=== PATIENT | male | born 1975 | race Caucasian/White ===

== ENCOUNTER 2023-10-09 09:18 | Observation (INO) | payer MEDICARE, OTHER ==
[~2023-10-09] VITALS: Ht 185.4 cm; Wt 77.1 kg
[2023-10-09 09:28] VITALS: BP 127/79; PULSE 91; RESP 18; TEMP 98; O2SAT 95
[2023-10-09 10:26] LABS: BASOPHILS # (AUTO) 0.1 K/uL (0.00-0.22); BASOPHILS % (AUTO) 1.1 % (0.0-2.0); EOSINOPHILS # (AUTO) 0.1 K/uL (0-0.4); EOSINOPHILS % (AUTO) 1.2 % (0.0-4.0); HEMOGLOBIN 12.7 g/dL (12.0-18.0); LYMPHOCYTES # (AUTO) 1.1 K/uL (2.0-11.5); LYMPHOCYTES % (AUTO) 17.7 % (20.5-51.1); MEAN CORPUSCULAR HEMOGLOBIN 30 pg (27-31); MEAN CORPUSCULAR HGB CONC 34 g/dL (33-37); MEAN CORPUSCULAR VOLUME 89.9 fL (80-94); MONOCYTES # (AUTO) 0.5 K/uL (0.8-1.0); MONOCYTES % (AUTO) 8.4 % (1.7-9.3); NEUTROPHILS # (AUTO) 4.6 K/uL (1.8-7.7); NEUTROPHILS % (AUTO) 71.6 % (42.2-75.2); PLATELET COUNT (AUTO) 231 K/uL (140-450); RED BLOOD CELL COUNT(AUTO) 4.23 MIL/uL (4.20-6.10); RED CELL DISTRIBUTION WIDTH 13.3 % (11.6-13.7); WHITE BLOOD COUNT (AUTO) 6.4 K/uL (4.8-10.8)
[2023-10-09 10:40] LABS: INR 0.97 (0.8-1.2); PARTIAL THROMBOPLASTIN TIME 27.1 secs (22-35.6); PROTHROMBIN TIME 10.2 secs (10.8-13.4)
[2023-10-09 10:41] LABS: ANION GAP 12.2 (8-16); CALCIUM 8.8 mg/dL (8.5-10.1); CARBON DIOXIDE 28.3 mmol/L (21-32); CREATININE 1.2 mg/dL (0.6-1.3); POTASSIUM 3.5 mmol/L (3.5-5.1)
[2023-10-09 10:50] LABS: ALANINE AMINOTRANSFERASE 60 U/L (12-78); ALBUMIN 3.9 g/dL (3.4-5.0); ALCOHOL, BLOOD < 3 mg/dL (<10); ALKALINE PHOSPHATASE 154 U/L (50-136); ASPARTATE AMINOTRANSFERASE 73 U/L (15-37); BILIRUBIN,DIRECT 0.1 mg/dL (0.0-0.3); CREATINE KINASE, TOTAL 327 U/L (39-308); LIPASE 58 U/L (16-77); TOTAL BILIRUBIN 0.5 mg/dL (0.0-1.0); TOTAL PROTEIN, SERUM 7.5 g/dL (6.4-8.2)
[2023-10-09 10:51] LABS: ACETAMINOPHEN < 0.5 ug/ml (10-30); SALICYLATE < 2.8 mg/dL (2.8-20.0)
[2023-10-09 10:53] LABS: LACTIC ACID 1.2 mmol/L (0.4-2.0)
[2023-10-09 11:20] LABS: CKMB RELATIVE INDEX 2.2 (0.0-2.5); CREATINE KINASE MB 7.3 ng/mL (0-3.6)
[2023-10-09] MEDS: NACL 0.9% 1,000 ML IV ONE (11:52)
[2023-10-09] MEDS ORDERED: TADA5TAB PO (12:57)
[2023-10-09] MEDS ORDERED: HUM SUBQ (12:57)
[2023-10-09] MEDS ORDERED: FAMO-368 PO (12:57)
[2023-10-09] MEDS ORDERED: ESCI20TA PO (12:57)
[2023-10-09] MEDS ORDERED: HYDROcodone/APAP 5/325 MG 1 TAB TAB PO PRN (14:50)
[2023-10-09] MEDS ORDERED: KCL 20 MEQ IN 100 mL PREMIX 200 ML IV PRN (14:50)
[2023-10-09] MEDS ORDERED: MAG SULF 2000 MG/WATER PREMIX 50 ML IV PRN (14:50)
[2023-10-09] MEDS ORDERED: DEXTROSE 50% 50 ML SYR IVP PRN (14:50)
[2023-10-09] MEDS ORDERED: LORazepam 1 MG TAB PO PRN (14:50)
[2023-10-09] MEDS ORDERED: MAGNESIUM OXIDE 400 MG TAB PO PRN (14:50)
[2023-10-09] MEDS ORDERED: ZOLPIDEM 5 MG TAB PO PRN (14:50)
[2023-10-09] MEDS ORDERED: POTASSIUM CHLORIDE 10 MEQ TABER PO PRN (14:50)
[2023-10-09] MEDS ORDERED: ONDANSETRON 4 MG/2 ML VIAL IVP PRN (14:50)
[2023-10-09] MEDS ORDERED: ACETAMINOPHEN 325 MG TAB PO PRN (14:50)
[2023-10-09] MEDS: BLOOD GLUCOSE MONITORING 1 DEV DEV FS SCH (16:35)
[2023-10-09] MEDS: INSULIN LISPRO SLIDING SCALE 100 UNITS/ML VIAL SUBQ PRN (16:42)
[2023-10-09 20:36] VITALS: BP 131/76; PULSE 90; RESP 14; TEMP 97.1; O2SAT 100
[2023-10-10] MEDS ORDERED: ESCITALOPRAM 20 MG TAB PO SCH (09:00)
[2023-10-10] MEDS ORDERED: DOCUSATE SODIUM 100 MG GELCAP PO SCH (09:00)
[2023-10-10] MEDS ORDERED: ENOXAPARIN 40 MG/0.4 ML SYR SUBQ SCH (09:00)
== END 2023-10-09 20:36 | disposition home or self-care (01) ==
LOC: EDBD 09:18 → MED 09:18 → MTU 14:53 → INTOOBSV 14:53 → UNDOADMOB 14:53 → MTU 18:31 → UNDODISOB 20:36
PROVIDERS: ADMIT Hospitalist; ATTEND Hospitalist
DX: E11.649 Type 2 diabetes mellitus with hypoglycemia without coma (principal); R41.82 Altered mental status, unspecified; M79.7 Fibromyalgia; F32.A Depression, unspecified; F12.90 Cannabis use, unspecified, uncomplicated; Z79.4 Long term (current) use of insulin; Z79.899 Other long term (current) drug therapy; Z90.49 Acquired absence of other specified parts of digestive tract; Z86.2 Personal history of diseases of the blood and blood-forming organs and certain disorders involving the immune mechanism
CPT/HCPCS: 36415; 70450; 71045; 80048; 80076; 82550; 82553; 82948; 83036; 83605; 83690; 84484; 85025; 85610; 85730; 87040; 93005; 96360; 96372; 99285; G0378; G0480; J1815; G0482

== ENCOUNTER 2023-12-02 21:23 | Emergency (ER) | payer MEDICARE, OTHER ==
[~2023-12-02] VITALS: Ht 182.9 cm; Wt 81.6 kg
[2023-12-02 21:23] VITALS: BP 154/88; PULSE 86; RESP 19; TEMP 96.7; O2SAT 97
[~2023-12-02 21:23] MED LIST: ESCI20TA PO; FAMO-368 PO; HUM SUBQ; TADA5TAB PO
[2023-12-02 21:56] VITALS: BP 118/65; PULSE 97; RESP 20; TEMP 96.7; O2SAT 98
[2023-12-02 22:03] LABS: BASOPHILS % (AUTO) 0.4 % (0.0-2.0); EOSINOPHILS % (AUTO) 0.2 % (0.0-4.0); HEMOGLOBIN 11.8 g/dL (12.0-18.0); LYMPHOCYTES # (AUTO) 0.9 K/uL (2.0-11.5); MEAN CORPUSCULAR HEMOGLOBIN 30 pg (27-31); MEAN CORPUSCULAR HGB CONC 34 g/dL (33-37); MEAN CORPUSCULAR VOLUME 89.3 fL (80-94); MONOCYTES # (AUTO) 0.7 K/uL (0.8-1.0); MONOCYTES % (AUTO) 6.4 % (1.7-9.3); NEUTROPHILS # (AUTO) 9.4 K/uL (1.8-7.7); PLATELET COUNT (AUTO) 244 K/uL (140-450); RED BLOOD CELL COUNT(AUTO) 3.92 MIL/uL (4.20-6.10); RED CELL DISTRIBUTION WIDTH 13.5 % (11.6-13.7); WHITE BLOOD COUNT (AUTO) 11.1 K/uL (4.8-10.8)
[2023-12-02 22:17] LABS: ANION GAP 12.8 (8-16); CALCIUM 9.2 mg/dL (8.5-10.1); CARBON DIOXIDE 29.2 mmol/L (21-32); CREATININE 1.2 mg/dL (0.6-1.3)
[2023-12-02 22:23] LABS: ALBUMIN 3.6 g/dL (3.4-5.0); BILIRUBIN,DIRECT 0.1 mg/dL (0.0-0.3); TOTAL BILIRUBIN 0.5 mg/dL (0.0-1.0); TOTAL PROTEIN, SERUM 7.3 g/dL (6.4-8.2)
[2023-12-02] MEDS: POTASSIUM CHLORIDE 10 MEQ TABER PO ONE (22:59)
[2023-12-02] MEDS: LACTATED RINGERS 1,000 ML IV ONE (23:04)
[2023-12-03] MEDS: LACTATED RINGERS 1,000 ML IV ONE (00:59)
[2023-12-03 03:13] LABS: APPEARANCE,URINE CLEAR (CLEAR); BILIRUBIN,URINE NEGATIVE (NEGATIVE); BLOOD, URINE NEGATIVE (NEGATIVE); COLOR,URINE YELLOW (YELLOW); LEUKOCYTE ESTERASE ,URINE NEGATIVE (NEGATIVE); NITRITE, URINE NEGATIVE (NEGATIVE); PH,URINE 6.5 (5.0-9.0); PROTEIN,URINE NEGATIVE (NEGATIVE); UGLUCOSE TRACE (NEGATIVE); UROBILINOGEN,URINE 0.2 EU/dL (0.2 - 1)
[2023-12-03 03:30] LABS: AMPHETAMINE, URINE POSITIVE ng/ml (NEG <=1000); BARBITURATE, URINE NEGATIVE ng/ml (NEG <=200); BENZODIAZEPINE, URINE NEGATIVE ng/mL (NEG <=200); CANNABINOID, URINE POSITIVE ng/mL (NEG <=50); COCAINE, URINE NEGATIVE ng/mL (NEG <=300); OPIATE, URINE NEGATIVE ng/mL (NEG <=2000); PHENCYCLIDINE SCREEN,URINE NEGATIVE ng/mL (NEG <=25)
== END 2023-12-03 03:59 | disposition home or self-care (01) ==
LOC: MED 21:23
DX: E11.649 Type 2 diabetes mellitus with hypoglycemia without coma (principal); E87.6 Hypokalemia; E86.0 Dehydration; E87.0 Hyperosmolality and hypernatremia; F15.10 Other stimulant abuse, uncomplicated; Z79.4 Long term (current) use of insulin; Z79.899 Other long term (current) drug therapy
CPT/HCPCS: 36415; 80048; 80076; 80305; 81003; 82948; 85025; 96360; 96361; 99291; J7120; 99283